=== PATIENT | female | born 1990 | race Two or more races ===

== ENCOUNTER 2022-01-01 10:01 | Observation (INO) | payer SELFPAY ==
[~2022-01-01] VITALS: Ht 162.6 cm; Wt 63.5 kg
[2022-01-01 10:45] VITALS: BP 106/67
== END 2022-01-01 11:20 | disposition home or self-care (01) ==
LOC: MLD 10:01
PROVIDERS: ADMIT Obstetrics & Gynecology; ATTEND Obstetrics & Gynecology
DX: O99.891 Other specified diseases and conditions complicating pregnancy (principal); Z20.822 Contact with and (suspected) exposure to COVID-19; M25.551 Pain in right hip; M25.552 Pain in left hip; M79.652 Pain in left thigh; M79.651 Pain in right thigh; Z3A.35 35 weeks gestation of pregnancy
CPT/HCPCS: 59025; 81000; 87426; G0378; G0379

== ENCOUNTER 2022-01-16 17:08 | Observation (INO) | payer SELFPAY | END 2022-01-16 18:25 | disposition home or self-care (01) | LOC: MLD 17:08 → MERGE 17:08 | PROVIDERS: ADMIT Obstetrics & Gynecology; ATTEND Obstetrics & Gynecology | DX: O26.893 Other specified pregnancy related conditions, third trimester (principal); R10.9 Unspecified abdominal pain; O99.891 Other specified diseases and conditions complicating pregnancy; M54.9 Dorsalgia, unspecified; Z3A.37 37 weeks gestation of pregnancy | CPT/HCPCS: 59025; G0378; G0379 ==

== ENCOUNTER 2022-01-25 21:28 | Observation (INO) | payer SELFPAY ==
[~2022-01-25] VITALS: Ht 162.6 cm; Wt 63.5 kg
[2022-01-25 22:57] VITALS: BP 121/73
[2022-01-26 00:17] LABS: APPEARANCE,URINE CLEAR (CLEAR); BILIRUBIN,URINE NEGATIVE (NEGATIVE); BLOOD, URINE NEGATIVE (NEGATIVE); COLOR,URINE YELLOW (YELLOW); LEUKOCYTE ESTERASE ,URINE 1+ (NEGATIVE); NITRITE, URINE NEGATIVE (NEGATIVE); UGLUCOSE 3+ (NEGATIVE)
[2022-01-26 00:32] LABS: RBC,URINE 0-5 /HPF (0-5)
== END 2022-01-25 22:48 | disposition home or self-care (01) ==
LOC: MLD 21:28
PROVIDERS: ADMIT Obstetrics & Gynecology; ATTEND Obstetrics & Gynecology
DX: O26.893 Other specified pregnancy related conditions, third trimester (principal); R10.9 Unspecified abdominal pain; O99.891 Other specified diseases and conditions complicating pregnancy; M54.9 Dorsalgia, unspecified; Z3A.39 39 weeks gestation of pregnancy
CPT/HCPCS: 59025; 81001; 87086; G0378

== ENCOUNTER 2022-01-30 19:15 | Inpatient (IN) | payer SELFPAY ==
[~2022-01-30] VITALS: Ht 162.6 cm; Wt 77.1 kg
[2022-01-30 19:45] VITALS: BP 128/81
[2022-01-30] MEDS ORDERED: METHYLERGONOVINE 0.2 MG/ML AMP IM PRN ×2 (20:00→21:50)
[2022-01-30] MEDS ORDERED: PROMETHAZINE 25 MG/ML VIAL IVP PRN (20:00)
[2022-01-30] MEDS ORDERED: LACTATED RINGERS 1,000 ML IV SCH (20:00)
[2022-01-30] MEDS ORDERED: OXYTOCIN 20 UNITS in LACTATED RINGERS 1,000 ML IV SCH (20:00)
[2022-01-30] MEDS ORDERED: CARBOPROST 250 MCG/ML AMP IM PRN (20:00)
[2022-01-30 20:24] LABS: BASOPHILS % (AUTO) 0.3 % (0.0-2.0); EOSINOPHILS # (AUTO) 0.1 K/uL (0-0.4); EOSINOPHILS % (AUTO) 1.3 % (0.0-4.0); HEMATOCRIT 32.9 % (36-48); HEMOGLOBIN 10.8 g/dL (12.0-16.0); LYMPHOCYTES # (AUTO) 2.6 K/uL (2.5-16.5); LYMPHOCYTES % (AUTO) 26.2 % (20.5-51.1); MEAN CORPUSCULAR HEMOGLOBIN 27 pg (27-31); MEAN CORPUSCULAR HGB CONC 33 g/dL (33-37); MEAN CORPUSCULAR VOLUME 82.6 fL (80-94); MONOCYTES # (AUTO) 0.9 K/uL (0.8-1.0); MONOCYTES % (AUTO) 8.6 % (1.7-9.3); NEUTROPHILS # (AUTO) 6.3 K/uL (1.8-7.7); NEUTROPHILS % (AUTO) 63.6 % (42.2-75.2); PLATELET COUNT (AUTO) 292 K/uL (140-450); RED BLOOD CELL COUNT(AUTO) 3.98 MIL/uL (4.20-5.40); WHITE BLOOD COUNT (AUTO) 9.9 K/uL (4.8-10.8)
[2022-01-30 20:40] LABS: ALBUMIN 2.5 g/dL (3.4-5.0); ANION GAP 12.4 (8-16); CARBON DIOXIDE 23.6 mmol/L (21-32); CREATININE 0.6 mg/dL (0.6-1.3); TOTAL BILIRUBIN 0.2 mg/dL (0.0-1.0)
[2022-01-30] MEDS ORDERED: AMPICILLIN 2,000 MG VIAL ONE (20:50)
[2022-01-30] MEDS ORDERED: MORPHINE SULFATE 2 MG/ML SYR IVP PRN ×2 (21:05→21:20)
[2022-01-30] MEDS ORDERED: ONDANSETRON 4 MG/5 ML ORASYR GT PRN (21:05)
[2022-01-30] MEDS ORDERED: ONDANSETRON 4 MG/2 ML VIAL ONE ×2 (21:11→21:12)
[2022-01-30 21:14] LABS: APPEARANCE,URINE CLEAR (CLEAR); BILIRUBIN,URINE NEGATIVE (NEGATIVE); BLOOD, URINE TRACE-I (NEGATIVE); COLOR,URINE YELLOW (YELLOW); LEUKOCYTE ESTERASE ,URINE NEGATIVE (NEGATIVE); NITRITE, URINE NEGATIVE (NEGATIVE); UGLUCOSE 1+ (NEGATIVE)
[2022-01-30 21:24] LABS: RBC,URINE 0-5 /HPF (0-5); WBC,URINE NONE SEEN /HPF (0-5)
[2022-01-30] MEDS ORDERED: OXYTOCIN 20 UNITS/LR PREMIX 1,000 ML IV ONE (21:28)
[2022-01-30] MEDS ORDERED: SIMETHICONE 80 MG TAB.CHEW PO PRN (21:50)
[2022-01-30] MEDS ORDERED: IBUPROFEN 800 MG TAB PO PRN (21:50)
[2022-01-30] MEDS ORDERED: OXYTOCIN 10 UNITS/ML VIAL IM PRN (21:50)
[2022-01-30] MEDS ORDERED: MEASLES, MUMPS, AND RUBELLA 1 VIAL SQVAC ONE (21:50)
[2022-01-30] MEDS ORDERED: IBUPROFEN 600 MG TAB PO PRN (21:50)
[2022-01-30] MEDS ORDERED: DOCUSATE SODIUM 100 MG GELCAP PO PRN (21:50)
[2022-01-30] MEDS ORDERED: BENZOCAINE/MENTHOL 20%-0.5% 60 GM CAN TP PRN (21:50)
[2022-01-30] MEDS ORDERED: bisacodyL 5 MG TABEC PO PRN (21:50)
[2022-01-30] MEDS ORDERED: METHYLERGONOVINE 0.2 MG TAB PO PRN (21:50)
[2022-01-31 07:59] LABS: HEMATOCRIT 32.8 % (36-48); HEMOGLOBIN 10.5 g/dL (12.0-16.0)
--- NOTE | 2022-02-01 08:04 | NUR ---
PATIENT HAS BEEN SCREENED AND CATEGORIZED LOW NUTRITION RISK. PATIENT WILL BE SEEN WITHIN 7 DAYS OF ADMISSION. 02/01/22-02/07/[address]
[2022-02-01 09:06] LABS: HEPATITIS B SURFACE ANTIGEN Negative (Negative)
== END 2022-02-01 15:45 | disposition home or self-care (01) | DRG 807 ==
LOC: MFCC 19:15 → OBSVTOIN 19:56 → MFCC 23:00
PROVIDERS: ADMIT Obstetrics & Gynecology; ATTEND Obstetrics & Gynecology
PROC: 10E0XZZ Delivery of Products of Conception, External Approach (ICD-10-PCS; principal; 2022-01-30)
PROC: 10907ZC Drainage of Amniotic Fluid, Therapeutic from Products of Conception, Via Natural or Artificial Opening (ICD-10-PCS; 2022-01-30)
DX: O80 Encounter for full-term uncomplicated delivery (principal); Z37.0 Single live birth; Z3A.39 39 weeks gestation of pregnancy; Z20.822 Contact with and (suspected) exposure to COVID-19
CPT/HCPCS: 36415; 59409; 80053; 81001; 85018; 85025; 86592; 86762; 86886; 86900; 86901; 87340; 87653-90; J0290; J2405; J2550; J2590; J7120